=== PATIENT | female | born 1975 | race Caucasian/White ===

== ENCOUNTER → 2016-12-19 | Outpatient (CLI) | payer BC ==
[2005-01-19 06:19] VITALS: TEMP 98.1
[~2016-12-19] MED LIST: CLARITIN; PRENATAL VITAMI1 TA5 PO
== END ==
LOC: MC.RAD 11-16 14:40
DX: Z12.31 Encounter for screening mammogram for malignant neoplasm of breast (principal)

== ENCOUNTER → 2018-05-07 | Outpatient (CLI) | payer BC ==
[2005-01-19 06:19] VITALS: TEMP 98.1
== END ==
LOC: MC.RAD 14:46
DX: Z12.31 Encounter for screening mammogram for malignant neoplasm of breast (principal)

== ENCOUNTER → 2019-05-09 | Outpatient (CLI) | payer BC ==
[2005-01-19 06:19] VITALS: TEMP 98.1
== END ==
LOC: MC.RAD 14:52
DX: Z12.31 Encounter for screening mammogram for malignant neoplasm of breast (principal)

== ENCOUNTER → 2020-05-22 | Outpatient (CLI) | payer BC ==
[2005-01-19 06:19] VITALS: TEMP 98.1
== END ==
LOC: MC.RAD 07:27
DX: Z12.31 Encounter for screening mammogram for malignant neoplasm of breast (principal)

== ENCOUNTER → 2021-06-03 | Outpatient (CLI) | payer BC ==
[2005-01-19 06:19] VITALS: TEMP 98.1
== END ==
LOC: MC.RAD 13:22
DX: Z12.31 Encounter for screening mammogram for malignant neoplasm of breast (principal)